=== PATIENT | male | born 1955 | race Caucasian/White ===

== ENCOUNTER 2017-07-13 16:41 | Emergency (ER) | payer BC ==
[~2017-07-13] VITALS: Ht 175.3 cm; Wt 87.8 kg
[2017-07-13 16:47] VITALS: TEMP 36.6; Ht 175.3 cm; Wt 87.8 kg
[2017-07-13] MEDS ORDERED: SODIUM CHLORIDE 0.9% 1000ML 1,000 ML IV STA (17:07)
--- NOTE | 2017-07-13 17:14 | EMERGENCY ROOM VISIT NOTE ---
History Report prepared by Darleenibdeven: Renae Saleh Under the Supervision of: Dr. Jose Cole M.D. First contact with patient: 17:00 Chief Complaint: DIZZY Stated Complaint: SHAKEY, LIGHTHEADED, HOT History of Present Illness The patient is a 61 year old male who presents to the Emergency Room with complaints of dizziness. He reports around 1500 this afternoon, 2 hours [employer], he was out in his yard when he started to feel weak and lightheaded, so he went inside and sat down. After sitting down and cooling down, he still felt unwell and as though his breathing was "heavy", so he decided to come to the ED. He denies any chest pain. He denies any excessive sweating today while he was working in the yard due to taking things easy recently because of a torn bicep. He denies any recent cough, cold or congestion. He has experienced no recent vomiting, diarrhea or urinary symptoms. He reports he did drive here from [place] around noon today, and states he had no issues with the drive. Source of History: patient Onset: 2 hours [employer] Position: other (global) Timing: resolved Associated Symptoms: + SOB, + weakness, No cough (or cold symptoms or congestion), No chest pain, No vomiting, No diarrhea, No urinary symptoms Review of Systems See HPI for pertinent positives & negatives. A total of 10 systems reviewed and were otherwise negative. Past Medical & Surgical Surgical Problems: (1) History of cholecystectomy Family History Cancer Heart disease Kidney disease Social History Smoking Status: Never Smoker Alcohol Use: occasionally Drug Use: none Marital Status: Housing Status: lives with family Occupation Status: employed Current/Historical Medications No Active Prescriptions or Reported Meds Allergies Coded Allergies: No Known Allergies (Unverified , 07/13/17) Physical Exam Vital Signs Date Time Temp Pulse Resp B/P (MAP) Pulse Ox O2 Delivery O2 Flow Rate FiO2 07/13/17 20:00 67 16 134/76 98 07/13/17 19:18 65 16 135/84 98 Room Air 07/13/17 18:39 65 07/13/17 17:52 85 18 144/89 98 Room Air 07/13/17 17:52 66 18 150/80 98 Room Air 85 144/89 87 158/94 07/13/17 16:47 36.6 79 18 153/91 97 Room Air Physical Exam GENERAL: Patient is in no acute distress. HEENT: No acute trauma, normocephalic atraumatic, mucous membranes moist, no nasal congestion, no scleral icterus. NECK: No stridor, no adenopathy, no meningismus, trachea is midline. LUNGS: Clear to auscultation bilaterally, no wheeze, no rhonchi, breath sounds equal. HEART: Without murmurs gallops or rubs, regular rate and rhythm. ABDOMEN: Soft, nontender, bowel sounds positive, no hernias, no peritonitis. EXTREMITIES: No cyanosis or edema, full range of motion of all the joints without pain or difficulty, no signs for acute trauma. NEUROLOGIC: Oriented x 3, no acute motor or sensory deficits, no focal weakness. No speech slur or facial droop, no pronator drift or cerebellar dysfunction. SKIN: No rash, no jaundice, no diaphoresis. Medical Decision & Procedures ER Provider Diagnostic Interpretation: Radiology results as stated below per my review and radiologist interpretation: CHEST ONE VIEW PORTABLE CLINICAL HISTORY: Change in mental status. Weakness. COMPARISON STUDY: No previous studies for comparison. FINDINGS: The heart is at the upper limits of normal in size. There is no failure. There is no lobar consolidation. There are no pleural effusions. There is minor basilar interstitial thickening. IMPRESSION: No active disease in the chest. Electronically signed by: Robert No M.D. 07/13/2017 5:18 PM Laboratory Results 07/13/17 17:32 Red Blood Count 4.88, Mean Corpuscular Volume 86.9, Mean Corpuscular Hemoglobin 31.8, Mean Corpuscular Hemoglobin Concent 36.6, Mean Platelet Volume 9.8, Neutrophils (%) (Auto) 72.2, Lymphocytes (%) (Auto) 16.5, Monocytes (%) (Auto) 8.8, Eosinophils (%) (Auto) 1.4, Basophils (%) (Auto) 0.1, Neutrophils # (Auto) 5.58, Lymphocytes # (Auto) 1.28, Monocytes # (Auto) 0.68, Eosinophils # (Auto) 0.11, Basophils # (Auto) 0.01 07/13/17 17:32 Test 07/13/17 17:32 07/13/17 17:54 07/13/17 19:16 White Blood Count 7.74 K/uL (4.8-10.8) Red Blood Count 4.88 M/uL (4.7-6.1) Hemoglobin 15.5 g/dL (14.0-18.0) Hematocrit 42.4 % (42-52) Mean Corpuscular Volume 86.9 fL (80-100) Mean Corpuscular Hemoglobin 31.8 pg (25-34) Mean Corpuscular Hemoglobin Concent 36.6 g/dl (32-36) Platelet Count 267 K/uL (130-400) Mean Platelet Volume 9.8 fL (7.4-10.4) Neutrophils (%) (Auto) 72.2 % Lymphocytes (%) (Auto) 16.5 % Monocytes (%) (Auto) 8.8 % Eosinophils (%) (Auto) 1.4 % Basophils (%) (Auto) 0.1 % Neutrophils # (Auto) 5.58 K/uL (1.4-6.5) Lymphocytes # (Auto) 1.28 K/uL (1.2-3.4) Monocytes # (Auto) 0.68 K/uL (0.11-0.59) Eosinophils # (Auto) 0.11 K/uL (0-0.5) Basophils # (Auto) 0.01 K/uL (0-0.2) RDW Standard Deviation 41.4 fL (36.4-46.3) RDW Coefficient of Variation 13.1 % (11.5-14.5) Immature Granulocyte % (Auto) 1.0 % Immature Granulocyte # (Auto) 0.08 K/uL (0.00-0.02) Anion Gap 7.0 mmol/L (3-11) Est Creatinine Clear Calc Drug Dose 89.6 ml/min Estimated GFR () 99.7 Estimated GFR (Non- 86.1 BUN/Creatinine Ratio 22.2 (10-20) Calcium Level 8.8 mg/dl (8.5-10.1) Magnesium Level 1.9 mg/dl (1.8-2.4) Total Bilirubin 0.7 mg/dl (0.2-1) Aspartate Amino Transf (AST/SGOT) 22 U/L (15-37) Alanine Aminotransferase (ALT/SGPT) 37 U/L (12-78) Alkaline Phosphatase 107 U/L (45-117) Total Creatine Kinase 229 U/L (39-308) Total Protein 7.3 gm/dl (6.4-8.2) Albumin 3.9 gm/dl (3.4-5.0) Globulin 3.4 gm/dl (2.5-4.0) Albumin/Globulin Ratio 1.1 (0.9-2) Thyroid Stimulating Hormone (TSH) 2.060 uIu/ml (0.300-4.500) Urine Color YELLOW Urine Appearance CLEAR (CLEAR) Urine pH 5.5 (4.5-7.5) Urine Specific [place] 1.019 (1.000-1.030) Urine Protein NEG (NEG) Urine Glucose (UA) NEG (NEG) Urine Ketones NEG (NEG) Urine Occult Blood NEG (NEG) Urine Nitrite NEG (NEG) Urine Bilirubin NEG (NEG) Urine Urobilinogen NEG (NEG) Urine Leukocyte Esterase TRACE (NEG) Urine WBC (Auto) 1-5 /hpf (0-5) Urine RBC (Auto) 0-4 /hpf (0-4) Urine Hyaline Casts (Auto) 1-5 /lpf (0-5) Urine Epithelial Cells (Auto) 10-20 /lpf (0-5) Urine Bacteria (Auto) NEG (NEG) Urine Mucus PRESENT (NONE PRSENT) Bedside Troponin I < 0.030 ng/ml (0-0.045) Laboratory results reviewed by me. Medications Administered Medications (Trade) Dose Ordered Sig/Gaurav Route Start Time Stop Time Status Last Admin Dose Admin Sodium Chloride 1,000 ml @ 999 mls/hr Q1H1M STAT IV 07/13/17 17:07 07/13/17 18:07 DC 07/13/17 18:03 999 MLS/HR Sodium Chloride 500 ml @ 999 mls/hr Q31M STAT IV 07/13/17 18:32 07/13/17 19:02 DC 07/13/17 18:32 999 MLS/HR ECG Per My Interpretation Indication: weakness Rate (beats per minute): 67 Rhythm: normal sinus Findings: no ectopy, other (LVH, no ST elevation, no PVC) ED Course 170: The patient was evaluated in room B10. A complete history and physical exam was performed. 1707: NSS 1000 ml @ 999 mls/hr IV. 1832: NSS 500 ml @ 999 mls/hr IV. 1833: Orthostatic vital signs are positive, heart rate increased by 20 points with standing. 1903: I reevaluated the patient. He is feeling well and resting comfortably. 1939: I reevaluated the patient. He is feeling well and is ready to go home. I discussed his results and discharge instructions and he verbalized complete understanding and agreement. Medical Decision The differential diagnoses considered include orthostasis, dehydration, electrolyte imbalance, anemia, dysrhythmia, MA, pneumonia, viral illness and stroke. There is no leukocytosis or concerning anemia. No significant electrolyte abnormality, kidney failure or hepatitis. Urinalysis does not show infection. The patient appears to be in a euthyroid state. EKG shows a normal sinus rhythm with LVH, no acute ischemia. Cardiac enzyme testing 2 is not consistent with acute cardiac injury. Orthostatic vital signs were positive suggesting dehydration. Chest film does not show pneumonia or CHF. No mediastinal widening. On exam, there were no focal neurologic deficits. The patient was not toxic or febrile. Patient received 1.5 L of IV saline, he feels significantly improved. I do think he can be discharged. His presentation today was likely secondary to dehydration and orthostasis. If worsening, he can return. Medication Reconcilliation Current Medication List: was personally reviewed by me Blood Pressure Screening Patient's blood pressure: Elevated blood pressure Blood pressure disposition: Elevated BP felt to be situational Impression Primary Impression: Weakness Additional Impressions: Dizziness Dehydration Scribe Attestation The scribe's documentation has been prepared under my direction and personally reviewed by me in its entirety. I confirm that the note above accurately reflects all work, treatment, procedures, and medical decision making performed by me. Departure Information Dispostion Home / Self-Care Prescriptions No Active Prescriptions or Reported Meds Patient Instructions My [facility] Cozy [place] Additional Instructions stay well hydrated rest lab testing today was all ok as we discussed return if worsening Problem Qualifiers
--- NOTE | 2017-07-13 17:20 | DIAGNOSTIC IMAGING REPORT ---
CHEST ONE VIEW PORTABLE CLINICAL HISTORY: Change in mental status. Weakness. COMPARISON STUDY: No previous studies for comparison. FINDINGS: The heart is at the upper limits of normal in size. There is no failure. There is no lobar consolidation. There are no pleural effusions. There is minor basilar interstitial thickening.[ IMPRESSION: No active disease in the chest. Electronically signed by: Robert No M.D. 07/13/2017 5:18 PM Dictated Date/Time: 07/13/2017 5:17 PM
[2017-07-13 17:59] LABS: BASO % 0.1 %; BASO ABS # 0.01 K/uL (0-0.2); EOS % 1.4 %; EOS ABS # 0.11 K/uL (0-0.5); HEMATOCRIT 42.4 % (42-52); HEMOGLOBIN 15.5 g/dL (14.0-18.0); IG# 0.08 K/uL (0.00-0.02); LYMPH % 16.5 %; LYMPH ABS # 1.28 K/uL (1.2-3.4); MEAN CELL VOLUME 86.9 fL (80-100); MEAN CORPUSCULAR HEMOGLOBIN 31.8 pg (25-34); MEAN CORPUSCULAR HGB CONC 36.6 g/dl (32-36); MEAN PLATELET VOLUME 9.8 fL (7.4-10.4); MONO % 8.8 %; MONO ABS # 0.68 K/uL (0.11-0.59); NEUT % 72.2 %; NEUT ABS # 5.58 K/uL (1.4-6.5); PLATELET COUNT 267 K/uL (130-400); RED CELL DISTRIBUTION WIDTH CV 13.1 % (11.5-14.5); RED CELL DISTRIBUTION WIDTH SD 41.4 fL (36.4-46.3); WHITE BLOOD COUNT 7.74 K/uL (4.8-10.8)
[2017-07-13 18:29] LABS: ALBUMIN 3.9 gm/dl (3.4-5.0); CALCIUM 8.8 mg/dl (8.5-10.1); CREATININE 0.95 mg/dl (0.60-1.40); POTASSIUM 3.6 mmol/L (3.5-5.1); TOTAL PROTEIN 7.3 gm/dl (6.4-8.2)
[2017-07-13] MEDS ORDERED: SODIUM CHLORIDE 0.9% 500ML 500 ML IV STA (18:32)
[2017-07-13 20:00] VITALS: BP 134/76; PULSE 67; O2SAT 98
== END 2017-07-13 20:00 | disposition home or self-care (01) ==
LOC: C.EDB 16:44
DX: E86.0 Dehydration (principal); R42 Dizziness and giddiness; R53.1 Weakness; Z90.49 Acquired absence of other specified parts of digestive tract; Z80.9 Family history of malignant neoplasm, unspecified; Z84.1 Family history of disorders of kidney and ureter